=== PATIENT | male | born 1970 | race Caucasian/White ===

== ENCOUNTER → 2019-05-04 | Outpatient (CLI) | payer SELFPAY ==
--- NOTE | 2019-05-04 12:56 | XR ---
EXAMINATION TYPE: XR chest 2V DATE OF EXAM: 05/04/2019 COMPARISON: NONE TECHNIQUE: PA and lateral views submitted. HISTORY: Cough FINDINGS: The lungs are clear and there is no pneumothorax or focal pneumonia. There is a 5 mm nodule adjacen t to left heart border. No overt failure. Biapical pleural thickening. Hyperinflation suggests COPD a nd there is hypertrophic change of the spine. There is mild blunting of the costophrenic angles. IMPRESSION: 1. Hyperinflation and COPD suspected. Blunting the costophrenic angles most likely related to hypertr ophic patient although pleural thickening or tiny pleural effusions not excluded. There are 2 5 mm no dule along the left heart border not excluded recommend CT of the chest..
== END | disposition home or self-care (01) ==
LOC: RADXRMAIN 12:35
PROVIDERS: ATTEND Internal Medicine
DX: J44.9 Chronic obstructive pulmonary disease, unspecified (principal); R91.1 Solitary pulmonary nodule
CPT/HCPCS: 71046

== ENCOUNTER → 2019-05-16 | Outpatient (CLI) | payer SELFPAY ==
--- NOTE | 2019-05-16 10:14 | CT ---
EXAMINATION TYPE: CT chest w con DATE OF EXAM: 05/16/2019 COMPARISON: Chest x-ray 05/04/2019 HISTORY: Pulmonary Nodule, abnormal chest x-ray CT DLP: 311.6 mGycm Automated exposure control for dose reduction was used. CONTRAST: CT scan of the chest is performed with IV Contrast, patient injected with 100 mL of Isovue 300. FINDINGS: LUNGS: The lungs are grossly clear, there is no concerning parenchymal mass or nodule identified. Min imal basilar atelectasis is present, there is a posterior diaphragmatic hernia on the left containing fat. Calcified nodule in the right lower lobe on axial image 36 measures 5 mm. Some minimal scarring suspected in the lingula. Some vascular crowding is seen on axial image 45 in the right lower lobe, difficult to exclude some active airspace disease. There is no pleural effusion or pneumothorax seen. The tracheobronchial tree is patent. MEDIASTINUM: There are no greater than 1 cm hilar or mediastinal lymph nodes. No pericardial effusi on is seen. There are mild coronary artery calcifications. AORTA: Ascending aorta measures 4.2 cm. Proximal descending aorta is 2.7 cm and is normal OTHER: Liver shows some low-attenuation. There may be underlying hepatic steatosis. IMPRESSION: Probable calcified granuloma right lower lobe. Possible scarring or airspace disease rig ht lower lobe. Follow-up suggested in 3-e6 months. Ascending aortic aneurysm. Coronary artery disease and additional findings above.
== END | disposition home or self-care (01) ==
LOC: RADCTMAIN 06:55
PROVIDERS: ATTEND Internal Medicine
DX: J98.11 Atelectasis (principal); I71.2 Thoracic aortic aneurysm, without rupture; K44.9 Diaphragmatic hernia without obstruction or gangrene; I25.10 Atherosclerotic heart disease of native coronary artery without angina pectoris
CPT/HCPCS: 71260; Q9967

== ENCOUNTER 2022-05-08 12:47 | Day surgery (SDC) | payer OTHER ==
[2022-05-07 09:30] VITALS: BMI 25.8
[~2022-05-08 12:47] MED LIST: LACTATED RINGERS 1,000 ML IV SCH
[2022-05-08 13:22] VITALS: TEMP 98.4
[2022-05-08] MEDS ORDERED: PROPOFOL 10 MG/ML 20 ML VIAL IV ONE (13:41)
[2022-05-08] MEDS ORDERED: fentaNYL (PF) 50 MCG/ML 2 ML AMP ONE (13:41)
[2022-05-08] MEDS ORDERED: MIDAZOLAM 2 MG/2 ML VIAL ONE (13:41)
--- NOTE | 2022-05-08 13:57 | P.OP ---
Date of Procedure: 05/08/22 Preoperative Diagnosis: Screening Procedure(s) Performed: colonoscopy with hot snare polypectomy Anesthesia: MAC Surgeon: Feliz Horton Condition: stable Disposition: same day Description of Procedure: Patient is brought to the Endo suite made in the left lateral decubitus position and sedation per department of anesthesia timeout performed correct patient correct procedure correct site was verified rectal exam was performed no gross abnormalities are noted scope was passed from the rectum to the cecum with ease this slowly withdrawn make sure to visualize all maza of the colon on the way out in the transverse colon is a small pedunculate problem removed via hot snare polypectomy this is. Scope was withdrawn to the rest the colon no other gross abnormalities are noted patient tolerated the procedure well no apparent complications he'll need a repeat colonoscopy in 8 years.
[2022-05-08 14:39] VITALS: BP 131/87; PULSE 58; RESP 15
== END 2022-05-08 14:52 | disposition home or self-care (01) ==
LOC: ORWHC2ENDO 12:47
PROVIDERS: ATTEND Student in an Organized Health Care Education/Training Program
DX: Z12.11 Encounter for screening for malignant neoplasm of colon (principal); K63.5 Polyp of colon; I10 Essential (primary) hypertension; J44.9 Chronic obstructive pulmonary disease, unspecified; I71.9 Aortic aneurysm of unspecified site, without rupture; K74.1 Hepatic sclerosis; Z79.899 Other long term (current) drug therapy; Z81.1 Family history of alcohol abuse and dependence
CPT/HCPCS: 45385; J2250; J3010; J2704

== ENCOUNTER → 2022-12-22 | Outpatient (CLI) | payer OTHER ==
[2022-12-22 18:30] LABS: Basophils # (A) 0.01 X 10*3/uL (0.00-0.10); Basophils % (A) 0.2 %; Eosinophils # (A) 0 X 10*3/uL (0.04-0.35); Eosinophils % (A) 0 %; HCT 51.1 % (39.6-50.0); HGB 17.5 g/dL (13.0-17.0); Immature Grans, Automated 0.2 %; Lymphocytes # (A) 1.23 X 10*3/uL (0.90-5.00); Lymphocytes % (A) 22.1 %; MCH 30.9 pg (27.0-32.0); MCHC 34.2 g/dL (32.0-37.0); MCV 90.1 fL (80.0-97.0); Mean Platelet Volume 8.9 fL (9.5-12.2); Monocytes # (A) 0.72 X 10*3/uL (0.20-1.00); Monocytes % (A) 12.9 %; NRBC Per 100 WBC 0 /100 WBCS (0.0-0.0); Neutrophils # (A) 3.59 X 10*3/uL (1.80-7.70); Neutrophils % (A) 64.6 %; Platelet Count 337 X 10*3/uL (140-440); RBC 5.67 X 10*6/uL (4.40-5.60); RDW 12.2 % (11.5-14.5); WBC 5.56 X 10*3/uL (4.50-10.00)
[2022-12-22 20:06] LABS: ALT 40 U/L (10-49); AST 24 U/L (14-35); African American GFR (CKD) 88.4 (60.0-200.0); Albumin 4.9 g/dL (3.8-4.9); Albumin/Globulin Ratio 1.91 (1.60-3.17); Alkaline Phosphatase 74 U/L (41-126); BUN/Creat Ratio 11.18 Ratio (12.00-20.00); Blood Urea Nitrogen 12.3 mg/dL (9.0-27.0); Calcium 10.1 mg/dL (8.7-10.3); Carbon Dioxide 24.5 mmol/L (20.0-27.5); Chloride 100 mmol/L (96-109); Chol/HDL Ratio 3.77 Ratio; Globulin 2.6 g/dL (1.6-3.3); Glucose 95 mg/dL (70-110); LDL Cholesterol,Calculated 162.7 mg/dL (0.0-131.0); Non-African American GFR(CKD) 76.2 (60.0-200.0); Potassium 4.6 mmol/L (3.5-5.5); Sodium 137 mmol/L (135-145); Total Protein 7.5 g/dL (6.2-8.2)
== END | disposition home or self-care (01) ==
LOC: LABWHC1 11:17
PROVIDERS: ATTEND Family Medicine
DX: Z12.5 Encounter for screening for malignant neoplasm of prostate (principal); I10 Essential (primary) hypertension; R73.9 Hyperglycemia, unspecified
CPT/HCPCS: 36415; 80053; 80061; 83036; 84153; 84443; 85025

== ENCOUNTER → 2023-09-20 | Outpatient (CLI) | payer OTHER ==
[2023-09-21 04:04] LABS: Blood Urea Nitrogen 13.7 mg/dL (9.0-27.0); Carbon Dioxide 24.7 mmol/L (21.6-31.8); Chloride 99 mmol/L (96-109); Potassium 4.5 mmol/L (3.5-5.5); Sodium 141 mmol/L (135-145)
== END | disposition home or self-care (01) ==
LOC: LABWHC1 13:53
PROVIDERS: ATTEND Family Medicine
DX: I10 Essential (primary) hypertension (principal)
CPT/HCPCS: 36415; 80051; 82565; 84520

== ENCOUNTER → 2023-10-12 | Outpatient (CLI) | payer OTHER ==
--- NOTE | 2023-10-12 11:28 | XR ---
EXAMINATION TYPE: XR chest 1V DATE OF EXAM: 10/12/2023 COMPARISON: 05/04/2019 HISTORY: Cough TECHNIQUE: Single frontal view of the chest is obtained. FINDINGS: There is no focal air space opacity, pleural effusion, or pneumothorax seen. The cardiac silhouette size is within normal limits. The osseous structures are intact. Tiny granuloma right mi dlung. Linear scarring or atelectasis left lung. Biapical pleural thickening. Underlying COPD suspect ed. IMPRESSION: No acute process.
== END | disposition home or self-care (01) ==
LOC: RADXRMAIN 10:41
PROVIDERS: ATTEND Family Medicine
DX: J41.0 Simple chronic bronchitis (principal)
CPT/HCPCS: 71045